=== PATIENT | female | born 1980 | race Caucasian/White ===

== ENCOUNTER 2024-08-11 07:48 | Outpatient (CLI) | payer OTHER, SELFPAY ==
--- NOTE | ~2024-08-11 | CT_ITS ---
EXAMINATION: CT abdomen pelvis wo/w con DATE: 08/11/2024 08:30 INDICATION: Microscopic hematuria TECHNIQUE: Computed tomography (CT) of the abdomen and pelvis was performed without intravenous contr ast. CT of the abdomen and pelvis was then performed with a total of 130 mL Omnipaque-350 intravenous contrast using a double-bolus technique for simultaneous opacification of the renal parenchyma and r enal collecting system. Automated exposure control and iterative reconstruction technique were employ ed. The dose-length product was 1185.23 mGy-cm. COMPARISON: MRI dated 11/03/2014 FINDINGS: Lung bases are clear. Heart size is normal. No pericardial or pleural effusion. Bilateral breast impl ants. Liver, gallbladder, spleen, pancreas and bilateral adrenal glands are normal. 5 mm low-attenuat ion left renal cyst. Bilateral kidneys and ureters are otherwise normal with no urolithiasis. The mid to distal right and small portion of the proximal left ureters remain unopacified by contrast on the delayed imaging. No evident filling defects or urothelial irregularities in the contrast opacified p ortions of the bilateral renal collecting systems and ureters. Bladder is normal. The uterus is not i dentified and has likely been surgically resected. There are a couple left ovarian cysts/follicles th e largest measuring 1.8 cm. There are few sigmoid diverticula without adjacent from trace stranding t o suggest diverticulitis. Small bowel and retrocecal appendix are normal. No free intraperitoneal gas or fluid. No pathologically enlarged abdominal or pelvic lymphadenopathy. Minimal thoracolumbar dext rocurvature with mild lumbar spondylosis. IMPRESSION: 1. 5 mm left renal cyst. Otherwise normal kidneys and ureters with no urolithiasis or other etiology for reported hematuria. Reviewed, dictated and finalized at location B. [employer] IMPRESSION: 1. 5 mm left renal cyst. Otherwise normal kidneys and ureters with no urolithia sis or other etiology for reported hematuria.
--- NOTE | ~2024-08-11 | XR_ITS ---
XR abdomen/kub 1V Ordering provider: Zakiya Jeter, [employer] LUBRICATOR History: . MICROSCOPIC HEMATURIA, LOW BACK PAIN BILATERALLY . Comparison: None. FINDINGS: BOWEL: Nonobstructive bowel gas pattern. ORGANOMEGALY: None. SIGNIFICANT PATHOLOGIC CALCIFICATIONS: None. OTHER: No free air is seen under the diaphragm. IMPRESSION: NO ACUTE ABDOMINAL FINDINGS. Reviewed, dictated and finalized at location A. PIE[employer] AS[employer]BLER
== END 2024-08-11 07:49 | disposition home or self-care (01) ==
PROVIDERS: PCP Internal Medicine; Visit Provider Nurse Practitioner Family
DX: R31.29 Other microscopic hematuria (principal); N28.1 Cyst of kidney, acquired
CPT/HCPCS: 74018; 74178; Q9967

== ENCOUNTER 2025-09-09 11:43 | Outpatient (CLI) | payer OTHER, SELFPAY ==
--- NOTE | ~2025-09-09 | XR_ITS ---
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 Technique: 2 views obtained. Findings: The lungs are clear, no effusion. No pneumothorax. Heart is normal size. Mediastinal and hilar contours are within normal limits. Bony thorax no acute abnormality. Impression: No acute cardiopulmonary abnormality. Reviewed, dictated and finalized at location P. T BUILDER Impression: No acute cardiopulmonary abnormality.
== END 2025-09-09 11:44 | disposition home or self-care (01) ==
LOC: MICIMG 11:45
PROVIDERS: PCP Internal Medicine; Visit Provider Internal Medicine
DX: R05.9 Cough, unspecified (principal)
CPT/HCPCS: 71046